=== PATIENT | male | born 2000 | race African-American/Black ===

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

== ENCOUNTER 2022-04-19 12:59 | Emergency (ER) | payer OTHER | END 2022-04-19 14:00 | disposition home or self-care (01) | LOC: MADERS 12:59 | DX: S83.91XA Sprain of unspecified site of right knee, initial encounter (principal); X58.XXXA Exposure to other specified factors, initial encounter ==

== ENCOUNTER 2023-12-14 07:28 | Emergency (ER) | payer OTHER, SELFPAY ==
[2023-12-14] MEDS ORDERED: Tetracaine 0.5% PF 4 ML BOT ONE (07:57)
[2023-12-14] MEDS ORDERED: Fluorescein Opthalmic Strip ONE (07:57)
[2023-12-14] MEDS ORDERED: Ciprofloxacin 0.3% Ophth Soln 2.5 ml Bottle ONE (08:07)
== END 2023-12-14 08:30 | disposition home or self-care (01) ==
LOC: MADERS 07:28
DX: S05.01XA Injury of conjunctiva and corneal abrasion without foreign body, right eye, initial encounter (principal); S05.02XA Injury of conjunctiva and corneal abrasion without foreign body, left eye, initial encounter; H16.131 Photokeratitis, right eye; H16.132 Photokeratitis, left eye; Y93.89 Activity, other specified; W89.0XXA Exposure to welding light (arc), initial encounter
CPT/HCPCS: 99283